=== PATIENT | female | born 1985 | race Caucasian/White ===

== ENCOUNTER 2017-09-18 15:04 | Inpatient (IN) | payer MEDICAID, OTHER ==
[~2017-09-18] VITALS: Ht 152.4 cm; Wt 44.5 kg
[~2017-09-18 15:04] MED LIST: DIVA250T4 PO; FLUT200B IH; GUAN1TAB22 PO; LEVO50 PO; MV-M1TAB2 PO; QUET50TA PO
[2017-09-18 16:23] LABS: BASOPHILS % (AUTO) 0.4 % (0.0-2.0); EOSINOPHILS % (AUTO) 1.8 % (1.0-6.0); HEMATOCRIT 32.4 % (36-46); HEMOGLOBIN 11.1 g/dL (12.0-16.0); LYMPHOCYTES # (AUTO) 3.2 K/uL (1.0-4.8); LYMPHOCYTES % (AUTO) 64.4 % (22.0-44.0); MEAN CORPUSCULAR HEMOGLOBIN 32.3 pg (26.0-34.0); MEAN CORPUSCULAR HGB CONC 34.3 G/dL (31.0-37.0); MEAN CORPUSCULAR VOLUME 94 fL (80-100); MONOCYTES # (AUTO) 0.4 K/uL (0.1-1.0); MONOCYTES % (AUTO) 8.8 % (2.0-9.0); NEUTROPHILS # (AUTO) 1.2 K/uL (1.8-7.7); NEUTROPHILS % (AUTO) 24.6 % (40.0-70.0); RED BLOOD CELL COUNT(AUTO) 3.45 MIL/uL (4.00-5.20)
[2017-09-18 16:29] LABS: ANION GAP 6 mmol/L (8-16); CALCIUM, TOTAL 8.4 mg/dL (8.8-10.5); CARBON DIOXIDE 28 mmol/L (22-29); CHLORIDE 97 mmol/L (98-107); CREATININE 0.75 mg/dL (0.60-1.30); GLOMERULAR FILTR. RATE CALC > 60 mL/min (>60); POTASSIUM 4.3 mmol/L (3.5-5.1); SODIUM SERUM 131 mmol/L (136-145); UREA NITROGEN, BLOOD 15 mg/dL (7-18)
[2017-09-18 16:44] LABS: ALANINE AMINOTRANSFERASE 16 U/L (12-78); ALBUMIN 3.3 g/dL (3.4-5.0); ASPARTATE AMINOTRANSFERASE 24 U/L (15-37); BILIRUBIN,TOTAL 0.3 mg/dL (0.1-1.0); THYROID STIMULATING HORMONE 0.53 uIU/mL (0.36-3.74); TOTAL PROTEIN, SERUM 7.5 g/dL (6.4-8.2); VALPROIC ACID 116 mcg/mL (50-100)
[2017-09-18 17:18] LABS: PLATELET COUNT (AUTO) 89 K/uL (150-450)
[2017-09-18] MEDS ORDERED: ZOLPIDEM TARTRATE 10 MG TABLET PO PRN (18:15)
[2017-09-18] MEDS ORDERED: HALOPERIDOL 5 MG TABLET PO PRN (18:15)
[2017-09-18] MEDS: QUEtiapine FUMARATE 100 MG TABLET PO SCH (20:37)
[2017-09-18] MEDS ORDERED: DIVALPROEX SODIUM 250 MG DR TABLET PO SCH (21:00)
[2017-09-18] MEDS: GuanFACINE HCL 1 MG TABLET PO SCH (22:16)
[2017-09-19] MEDS: QUEtiapine FUMARATE 100 MG TABLET PO SCH ×2 (08:31→20:08)
[2017-09-19] MEDS ORDERED: DIVALPROEX SODIUM 250 MG DR TABLET PO SCH (09:00)
[2017-09-19] MEDS: GuanFACINE HCL 1 MG TABLET PO SCH (09:00)
[2017-09-19 09:20] VITALS: BP 117/54
[2017-09-19] MEDS ORDERED: INFLUENZA VIRUS VACCINE QVS 2017-18 (3YR+)/PF 60 MCG/0.5 ML SYRINGE IM ONE (12:00)
[2017-09-19 18:37] VITALS: BP 100/69
[2017-09-19] MEDS: VALPROIC ACID 250 MG/5 ML SYRUP UDCUP PO SCH (20:08)
[2017-09-19] MEDS ORDERED: VALPROIC ACID 250 MG CAPSULE PO SCH (21:00)
[2017-09-20] MEDS ORDERED: PNEUMOCOCCAL VACCINE POLYVALENT 0.5 ML VIAL [PPSV23] IM ONE (02:45)
[2017-09-20 07:13] VITALS: BP 110/63
[2017-09-20 08:25] VITALS: BP 100/64
[2017-09-20] MEDS: VALPROIC ACID 250 MG/5 ML SYRUP UDCUP PO SCH ×2 (08:36→20:47)
[2017-09-20] MEDS: QUEtiapine FUMARATE 100 MG TABLET PO SCH ×2 (08:36→20:48)
[2017-09-20] MEDS ORDERED: VALPROIC ACID 250 MG CAPSULE PO SCH (09:00)
[2017-09-20] MEDS: LORazepam 2 MG TABLET PO PRN (14:43)
[2017-09-20 16:07] VITALS: BP 104/70
[2017-09-21 07:32] VITALS: BP 107/74
[2017-09-21] MEDS: VALPROIC ACID 250 MG/5 ML SYRUP UDCUP PO SCH ×2 (08:09→20:37)
[2017-09-21] MEDS: QUEtiapine FUMARATE 100 MG TABLET PO SCH ×2 (08:09→20:37)
[2017-09-21 09:03] VITALS: BP 104/61
[2017-09-21] MEDS: LORazepam 2 MG TABLET PO PRN (09:31)
[2017-09-21 17:03] VITALS: BP 114/77
[2017-09-22] MEDS: LORazepam 2 MG TABLET PO PRN ×3 (01:24→14:38)
[2017-09-22 06:43] VITALS: BP 113/68
[2017-09-22 09:00] VITALS: BP 128/76
[2017-09-22] MEDS: QUEtiapine FUMARATE 100 MG TABLET PO SCH ×2 (09:00→20:06)
[2017-09-22] MEDS: VALPROIC ACID 250 MG/5 ML SYRUP UDCUP PO SCH ×2 (09:01→20:06)
[2017-09-22] MEDS ORDERED: DIVA500T35 PO (13:06)
[2017-09-22] MEDS ORDERED: QUET100T PO (13:06)
[2017-09-22 16:00] VITALS: BP 115/65
[2017-09-22] MEDS: GuanFACINE HCL 1 MG TABLET PO SCH (16:15)
[2017-09-22 17:28] VITALS: BP 93/55
[2017-09-22 17:30] VITALS: BP 120/75
[2017-09-23 06:19] VITALS: BP 106/80
[2017-09-23 08:00] VITALS: BP 103/55
[2017-09-23] MEDS: VALPROIC ACID 250 MG/5 ML SYRUP UDCUP PO SCH (08:37)
[2017-09-23] MEDS: QUEtiapine FUMARATE 100 MG TABLET PO SCH (08:37)
[2017-09-23] MEDS: GuanFACINE HCL 1 MG TABLET PO SCH (09:00)
[2017-09-23] MEDS ORDERED: QUET200T PO ×2 (13:04→13:40)
[2017-09-23] MEDS ORDERED: VALP250 PO ×2 (13:04)
[2017-09-23] MEDS ORDERED: QUET100T PO (13:04)
[2017-09-23] MEDS ORDERED: GUAN1TAB22 PO (13:04)
== END 2017-09-23 14:10 | disposition home or self-care (01) | DRG 750 ==
LOC: EMS 15:05 → B3A 09-19 07:42 → UNDODISIN 09-19 10:45 → B3A 09-19 20:47
PROVIDERS: ADMIT Psychiatry & Neurology Psychiatry; ATTEND Psychiatry & Neurology Psychiatry
DX: F25.9 Schizoaffective disorder, unspecified (principal); F79 Unspecified intellectual disabilities; E03.9 Hypothyroidism, unspecified; D64.9 Anemia, unspecified; H54.7 Unspecified visual loss; J45.909 Unspecified asthma, uncomplicated; Z79.899 Other long term (current) drug therapy
CPT/HCPCS: 84443; 90471; 99285; G0480